=== PATIENT | female | born 1970 | race Caucasian/White ===

== ENCOUNTER 2016-02-20 06:21 | Day surgery (SDC) | payer OTHER ==
[~2016-02-20] VITALS: Ht 175.3 cm; Wt 77.1 kg
[~2016-02-20 06:21] MED LIST: ADVIL200 M3 PO; AMBIEN10 MG PO; NEURONTIN300 MG PO; SKELAXIN800 MG PO; ULTRAM50 MG PO
[2016-02-20 07:42] VITALS: BP 117/79
[2016-02-20] MEDS ORDERED: ENDOCET 5-3251 EACH PO (09:32)
[2016-02-20 10:27] VITALS: BP 136/86
[2016-02-20 11:40] VITALS: BP 117/79
== END 2016-02-20 12:01 | disposition home or self-care (01) ==
LOC: SDC 06:21
DX: N84.0 Polyp of corpus uteri (principal); N80.3 Endometriosis of pelvic peritoneum; K21.9 Gastro-esophageal reflux disease without esophagitis
CPT/HCPCS: 88305; J0131; J0690; J1100; J1885; J2250; J2405; J2710; J3010